=== PATIENT | male | born 1940 | race Two or more races ===

== ENCOUNTER 2023-06-17 11:16 | Emergency (ER) | payer MEDICARE | END 2023-06-17 14:43 | disposition left against medical advice (07) | LOC: ER 11:17 | DX: L08.9 Local infection of the skin and subcutaneous tissue, unspecified (principal); Z53.21 Procedure and treatment not carried out due to patient leaving prior to being seen by health care provider ==

== ENCOUNTER 2025-06-05 10:06 | Outpatient (CLI) | payer MEDICARE ==
--- NOTE | 2025-06-05 12:16 | RADIOLOGY REPORT ---
INDICATION: PAIN, JOINT, KNEE, RIGHT; SPINAL STENOSIS OF LUMBAR REGION COMPARISON: None TECHNIQUE: 3 views of the lumbar spine were obtained. FINDINGS: The lumbar vertebral alignment is normal. 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 No acute fracture, vertebral compression deformity or aggressive osseous lesions. The paravertebral soft tissues are grossly unremarkable. IMPRESSION: No acute fracture or subluxation.
--- NOTE | 2025-06-05 12:17 | RADIOLOGY REPORT ---
EXAM: DI KNEE LIMITED (AP/LAT) CLINICAL INDICATION: PAIN, JOINT, KNEE, RIGHT TECHNIQUE: DI KNEE LIMITED (AP/LAT) Comparison: None FINDINGS/IMPRESSION: There is no evidence of acute fracture or dislocation. MODERATE RIGHT KNEE OSTEOARTHRITIS. POPLITEAL ARTERY ATHEROSCLEROSIS. The alignment is anatomical. There is no radiopaque foreign body.
== END 2025-06-05 23:59 | disposition home or self-care (01) ==
LOC: RAD 10:06
PROVIDERS: ATTEND Nurse Practitioner Family
DX: S22.089D Unspecified fracture of T11-T12 vertebra, subsequent encounter for fracture with routine healing (principal); M17.11 Unilateral primary osteoarthritis, right knee; M48.061 Spinal stenosis, lumbar region without neurogenic claudication; M25.561 Pain in right knee; M47.816 Spondylosis without myelopathy or radiculopathy, lumbar region; X58.XXXD Exposure to other specified factors, subsequent encounter
CPT/HCPCS: 72110; 73560